=== PATIENT | female | born 1960 | race Caucasian/White ===

== ENCOUNTER → 2016-06-19 | Outpatient (CLI) | payer BC ==
--- NOTE | 2016-06-20 06:14 | PAP/PSG TECHNICIAN REPORT ---
[facility] Body Design Checker Polysomnogram Report Study name: None Report date: 06/20/2016 Study date: 06/19/2016 Referring Physician: Renetta Lawson M.D. Name: DEREK ORDOÑEZ Interpreting Physician: Will Lawson M.D. Date of : 1960 Body Design Checker: MONICA Rene. Sex: Female Age: 56 StudyType: PSG Weight: 250 lbs Height: 56 years, Height 5' 4" Neck Circum: 15 inches BMI: 42.91 Medications: Flonase, Mucinex D, Zofran, Diflucan, Topmax, Lipitor, Zoloft Diovan, Methscopolamine, Hyqvia, Pulmicort, Magnesium 400mg, Riboflavin, Verapamil Patient History 56 yr. old female here for a possible split night sleep study with ETC02. Patient complains of snoring and odd behaviors in sleep. Patients [place] sleepiness scale score is 4/24. Patient took a one-time Ambien for study Parameters Monitored NPSG: E1-M2, E2-M1, Fp1-M2, Fp2-M1, F3-M2, F4-M2, F4-M1, C3-M2, C4-M2, C4-M1, O1-M2, O2-M2, O2-M1, T3-M2, T4-M1, P3-M2, P4-M1, CHIN1, CHIN2, HR, EKG, Legs, PFLOW, SNOR, FLOW, CFLOW, Tidal Volume, THOR, ABDO, SpO2, PLTH, CPRESS, ETCO2 Wave, ETCO2, pH Sleep Architecture Sleep Stages Time at Lights Off 10:20:08 PM STAGES Time (min.) TST (%) Time at Lights On 5:40:38 AM Wake 111.5 -- Total Recording Time (TRT) 441.00 min. N1 22.5 7 Total Sleep Period (TSP) 394.5 min. N2 166.0 50 Total Sleep Time (TST) 329.0min. N3 78.0 24 Awake Time 112.0 min. REM 62.5 19 Wake after Sleep Onset 74.0 min. Sleep Efficiency (SE) 75 % Sleep Onset Latency (KUSHAL) 37.5 min. Number of Stage 1 Shifts None Awakenings 14 Stage Changes 102 Number of REM periods 12 REM 62.5 19 REM Latency 107.0 min. NREM 266.5 81 Body Position Analysis Supine Right Left Side Prone Vertical Total Sleep Time (min.) 91.1 264.0 0.0 264.00 0.0 1.2 Total Sleep Time (%) 20% 80% 0% 80 0% N/A% Total Sleep Time REM (min.) 21.0 41.5 0.0 None 0.0 0.0 Total Sleep Time NREM (min.) 44.0 222.5 0.0 None 0.0 0.0 Intermittent Wake (min.) 26.1 84.1 0.0 None 0.0 1.2 Total Sleep Period (%) 17% None None None None None Arousals Myoclonus (PLM) * Events Count Index Events Count Index Spontaneous 2 0 Events Awake (PLMW) 86 46.3 Respiratory 2 0.4 Events Asleep w/ Arousal (PLMA) 25 4.6 PLM 24 5 Events Asleep w/o Arousal (PLMS) 232 42.3 Snoring 21 4 Total Asleep 257 46.9 Total 48 9 Total 343 47 Respiratory Analysis * CA OA MA CH H RERA Total Count 0 0 0 0 40 0 40 Index 0.0 0.0 0.0 0 7.3 0 7.3 Mean Duration 0.0 0.0 0.0 0.00 19.4 0.0 19.4 Longest Duration 0.0 0.0 0.0 0.00 0.0 0.0 45.4 Respiratory Event Summary Total Supine ~Supine Right Left Prone REM NREM Apneas Count 0 0 0 0 N/A N/A 0 0 Index 0.0 0 0 0.0 N/A N/A 0 0 Hypopneas (4% Desat) Count 40 22 18 18 N/A N/A 30 10 Index 7.3 20.3 4 4.1 N/A N/A 28.8 2.3 Apneas & All Hypopneas Count 40 22 18 18 N/A N/A 30 10 Index 7.3 20 4 4 N/A N/A 28.8 2.3 Respiratory Events (Power House Control Room Operator+All Hyp+RERA) Count 40 22 18 18 N/A N/A 30 10 Index 7.3 20 4 4.1 N/A N/A 28.8 2.3 Respiratory Related Arousal Count 2 22 2 2 N/A N/A 2 0 Index 0.4 0 0 0 N/A N/A 2 0 Snoring Analysis Supine Right Left Prone REM NREM Total Snore duration 141.8 min Snores count 553 2,848 N/A N/A 686 2,715 3,401 Snore mean duration 2.5 Sec Snores index 510 647 N/A N/A 658.6 611.3 620.2 TST with snoring (%) 43.1% SpO2 Analysis Total REM NREM Awake <50% 0.0 min. 0.0 min. 0.0 min. 0.0 min. 51 - 60% 0.0 min. 0.0 min. 0.0 min. 0.0 min. 61 - 70% 0.0 min. 0.0 min. 0.0 min. 0.0 min. 71 - 80% 0.3 min. 0.1 min. 0.0 min. 0.2 min. 81 - 90% 6.4 min. 4.6 min. 1.2 min. 0.7 min. 91 - 100% 415.4 min. 57.8 min. 265.1 min. 92.5 min. Average 96 94 96 98 Minimum SpO2 79 79 82 80 Desaturation Event Index 6.7 25.9 4.1 2.7 # Desat. Events below 89% 13 11 1 1 Time(%) with Saturation below 89% 0.8 0.5 0.1 0.2 Time(min.) with Saturation below 89% 3.3 2.1 0.3 0.8 Heart Rate Analysis End Tidal CO2 Analysis Min (bpm) Max (bpm) Average (bpm) TSP (mins) % of TSP Awake 61 107 71 Above 55 mmHg 0.0 0.0 NREM 61 88 73 50-55 mmHg 0.7 0.2 REM 66 80 73 45-50 mmHg 99.6 30.3 Overall 61 88 73 40-45 mmHg 198.9 60.4 35-40 mmHg 26.1 7.9 30-35 mmHg 3.1 1.0 Average ETCO2 0.1 Supplemental O2 Values Minimum O2 level: None Value Start Time End Time Body Design Checker Comments Mrs. Ordoñez slept in the right and supine positions. No cardiac arrhythmia .PLMs noted. No bruxism noted. Snoring was noted and scored as a 5 on a scale of 0 through 5. (0=no snoring, 5=snoring loud enough to be heard through a closed door or down the [address]arreal way) Mrs. Ordoñez awoke to use the restroom once during the night. The final report will be interpreted and signed by a sleep physician. The completed physician report will then be placed in the patient medical record. Therapy (cm H2O) 0 TIB (min.) 440.5 TST (min.) 329.0 Sleep Onset (min.) 37.5 REM Onset From Sleep (min.) 107.0 Sleep Efficiency % 75 Wakefulness (%) 25 Wakefulness (min.) 112.0 NREM 1 (%) 7 NREM 1 (min.) 22.5 NREM 2 (%) 50 NREM 2 (min.) 166.0 NREM 3 (%) 24 NREM 3 (min.) 78.0 REM (%) 19 REM (min.) 62.5 # Arousals 48 Arousal Index 9 # Snore 3,401 Snore Index 620.2 AHI 7.3 AHI Supine 20 AHI Non-Supine 4 NREM AHI 2.3 REM AHI 28.8 RDI 7.3 # Obstructive Apnea 0 # Central Apnea 0 # Mixed Apnea 0 # Hypopneas 40 RERAs 0 Total Respiratory Events 42 Time Below SpO2 89% (min.) 2.4 Mean NREM SpO2 (%) 96 Mean REM SpO2 (%) 94 Mean Sleep SpO2 (%) 95 Min NREM SpO2 (%) 82 Min REM SpO2 (%) 79 Position Supine (min.) 91.1 Position Non-supine (min.) 264.0 LM Index Sleep 46.9 LM Index NREM 51.8 LM Index REM 25.9 Mean Heart Rate (bpm) 73 Min Heart Rate (bpm) 61
--- NOTE | 2016-07-06 10:10 | POLYSOMNOGRAPH REPORT ---
REFERRING PERSON: Dr. Varun Lawson. [employer]LECT[employer] MECHANIC: Jackie Oconnell. Ms. Ordoñez is a 56-year-old female sent for a baseline sleep study. She complains of snoring and odd behaviors in her sleep. Her [place] sleepiness scale score on the evening of this study is 4. BMI is 42.91. She did take a one-time Ambien dose for this study. Following the technical and digital specifications of the [employer] (AASM) a standard diagnostic polysomnogram was performed monitoring EEG, EOG, EMG (chin and leg deviations), oxygen saturation, body position, digital video, respiratory effort and airflow. The sleep Stage and event scoring was based on the AASM Manual for the Scoring of Sleep and Associated Events 2007 edition. Apneas are defined as a drop in the peak thermal sensor excursion by >90% of baseline for at least 10 seconds. Hypopneas were scored using the 4% oxygen desaturation rule (4A-[employer]) and a decrease in the nasal pressure excursions by >30% of baseline for at least 10 seconds. Respiratory effort-related arousal (RERA's) is defined as a sequence of breaths lasting at least 10 seconds characterized by increasing respiratory effort or flattening of the nasal pressure waveform leading to an arousal from sleep when the sequence of breaths does not meet criteria for an apnea or hypopnea. Apnea Hypopnea index (AHI) is defined as the number of apneas and hypopneas occurring in an hour of sleep. Respiratory disturbance index (RDI) is defined as the number of apneas, hypopneas, and RERA's occurring in an hour of sleep. Ms. Ordoñez's total sleep period time was 394.5 minutes. Total sleep time was 329 minutes. Sleep efficiency was 75%. Latency to sleep onset was 37.5 minutes with wake after sleep onset of 74 minutes. Total non-REM sleep time was 266.5 minutes. She spent 7% of that time in N1 sleep, 50% in N2 sleep and 24% in N3 sleep. REM latency was 107 minutes. Total REM sleep time was 62.5 minutes or 19% of total sleep time. There were 48 cortical arousals from sleep. Two of these arousals were due to respiratory events, 24 due to periodic limb movements of sleep, 21 due to snoring and 2 were spontaneous. There were 257 periodic limb movements noted on this test. Limb movement index was 46.9. Limb movement with arousal index was 4.6. There were no obstructive, central or mixed apneas on this test. There were 40 hypopnea and no RERA. Apnea-hypopnea index was 7.3 consistent with mild sleep apnea. Supine AHI was 20, REM AHI was 28.8. There were 3401 snoring events recorded. Total sleep time with snoring was 43.1%. Mean saturation was 96% a desaturation to 79%, albeit brief. There were 2 periods of desaturation noted on this test both during REM sleep. Saturations however were less than 89% for only 3.3 minutes of sleep time. There was no cardiac ectopy noted on this study. Heart rates ranged from a low of 61 beats per minute to a high of 88 beats per minute during sleep. End tidal CO2s were recorded. End tidal CO2 was between 45 and 50 mmHg for 30.3% of total sleep period time, between 40 and 45 mmHg for 60.4%, between 35 and 40 mmHg for 7.9% and between 30 and 35 mmHg for 1% of total sleep period time. IMPRESSION AND PLAN: 56-year-old female with mild sleep apnea without significant nocturnal hypoxemia on this sleep study. 1. This patient would likely benefit from positive airway pressure therapy. It should eliminate any hypoxemia, snoring and apnea. She should return to the sleep for a full night titration and then based on those results be started on equipment at home. A download from her machine should be reviewed in 1 month both to check compliance as well as AHI and further pressure adjustments can occur at that time. 2. Alternatively, this patient could be started on auto titrating CPAP with pressures of 5-15 cm and a download reviewed in 1 month, patient placed on optimal pressure, and reevaluated. 3. Should this patient be unwilling or unable to tolerate CPAP therapy, she could be referred to ear, nose and throat or oral surgery/dental medicine (if appropriate) to discuss alternative treatments for sleep disorder breathing.
== END | disposition home or self-care (01) ==
LOC: C.NEUR 21:00
PROVIDERS: ATTEND Family Medicine
DX: R06.83 Snoring (principal); E66.01 Morbid (severe) obesity due to excess calories; Z86.69 Personal history of other diseases of the nervous system and sense organs; Z86.79 Personal history of other diseases of the circulatory system; R51 Headache